=== PATIENT | female | born 1955 | race Caucasian/White ===

== ENCOUNTER 2017-01-17 16:25 | Emergency (ER) | payer OTHER ==
[2017-01-17] MEDS ORDERED: KETOROLAC TROMETHAMINE 30 MG/1ML VIAL IVP ONE (16:40)
[2017-01-17] MEDS ORDERED: ONDANSETRON HCL/PF 4 MG/ 2ML VIAL IVP ONE (16:40)
[2017-01-17] MEDS ORDERED: 0.9 % SODIUM CHLORIDE 1,000 ML IV ONE ×2 (16:40→16:41)
[2017-01-17] MEDS ORDERED: ONDANSETRON HCL/PF 4 MG/ 2ML VIAL ONE (16:41)
[2017-01-17] MEDS ORDERED: KETOROLAC TROMETHAMINE 30 MG/1ML VIAL ONE (16:41)
[2017-01-17 16:49] LABS: BASOPHILS % 0.9 (0.0-1.5); MEAN CORPUSCULAR HEMOGLOBIN 30.1 pg (28.0-34.0); MEAN CORPUSCULAR VOLUME 87.4 fl (80.0-100.0); MONOCYTES % 3.3 % (0.0-11.0); NEUTROPHILS # 5.5 # k/uL (1.4-7.7)
[2017-01-17] MEDS ORDERED: fentaNYL CITRATE/PF 100 MCG/ 2ML AMP IVP ONE ×2 (17:00→17:41)
[2017-01-17 17:07] LABS: eGFR (African) > 60; eGFR (Non-African) > 60
--- NOTE | 2017-01-17 17:43 | Diagnostic Imaging Report ---
[facility] [address] [facility] [address] [place], [place]. [address] Report Submission Date: January 17, 2017 5:39:44 PM CDT Patient Study Name: VIVI MUNGUIA Date: January 17, 2017 5:08:22 PM CDT Modality Type: CT\SR Gender: F Description: CT ABD & PELVIS W/O CO : 55 Institution: [facility] Physician: LUZ MARTINES (LABORER HEADING) - ER CT abdomen and pelvis without contrast Date of study: 17 Jan 2017 CLINICAL HISTORY: RIGHT-SIDED FLANK PAIN X 2 DAYS. (Hx) / RT FLANK PAIN (DICOM Hx) TECHNIQUE: 5 mm contiguous axial images of the abdomen and pelvis non contrast. FINDINGS: The lung bases are clear. Abdomen: The liver, pancreas and spleen are normal in appearance. The gallbladder is unremarkable. . The aorta is normal in caliber. The small and large bowel are nondistended. There is no evidence of free air or free fluid. There is a right hydronephrosis and right hydroureter. Aortoiliac vascular calcification is present. There is a 3 mm calculus at the left ureterovesical junction. Pelvis: The small and large bowel remain normal in appearance. The distal ureters and bladder are normal in appearance. There is no evidence of distal ureteral or intravesicular calculi. . There is no evidence of free air or free fluid. The sigmoid colon and rectum are normal. The remaining pelvic structures are within normal limits and the bones of the pelvis are intact. There is lumbar spondylosis. Normal appendix is present. The uterus has been removed. IMPRESSION: Right hydronephrosis and right hydroureter secondary to a 3 mm right ureterovesical junction calculus Aortoiliac vascular calcification Lumbar spondylosis Hysterectomy Electronically signed on January 17, 2017 5:39:44 PM CDT by: Zach TREVIÑO
[2017-01-17] MEDS ORDERED: cefTRIAXone SODIUM ADVANTAGE 1 GM in NORMAL SALINE ADD-VANTAGE 50 ML IV ONE (17:45)
--- NOTE | 2017-01-17 17:45 | ED Physician Documentation ---
Female Urogenital Problems - HISTORIAN Historian: patient - HPI Stated Complaint: right flank and abdomen pain Chief Complaint: Female Urogenital Problems Onset: hours (2 hours ago) Severity: severe (05/10) Further Comments: yes (61 year old) - Associated Symptoms Urinary Symptoms: discomfort w/ urination, urgency w/ urination, pain w/ urination - ROS CONST: no problems GI/: nausea, other (right flank pain). denies: vomiting, diarrhea CVS/RESP: none EYES/ENT: none NEURO/PSYCH: none - PAST HX Past History: other (Celiac disease; right inner ear problems ) Other History: none Allergies/Adverse Reactions: Allergies Allergy/AdvReac Type Severity Reaction Status Date / Time Iodinated Contrast Media - Allergy Severe Anaphylaxis Verified 01/17/17 17:06 IV Dye Home Medications: Ambulatory Orders Medication Instructions Recorded Ciprofloxacin HCl [Cipro] 500 mg PO BID #14 tablet 01/17/17 Ondansetron HCl Rapdis [Zofran Odt] 4 mg PO Q6 PRN #15 tab 01/17/17 Rosuvastatin Calcium [Crestor] 5 mg PO DAILY 01/17/17 Tramadol HCl [Ultram] 50 mg PO TID PRN 01/17/17 - SOCIAL HX Smoking History: non-smoker - FAMILY HX Family History: denies: none - VITAL SIGNS Vital Signs: Vital Signs Temp Pulse Resp BP Pulse Ox 97.9 F 86 18 172/81 97 01/17/17 16:30 01/17/17 16:30 01/17/17 16:30 01/17/17 16:30 01/17/17 16:30 - REVIEWED ASSESSMENTS Nursing Assessment Reviewed: Yes Vitals Reviewed: Yes Progress - Progress Progress: Patient medicated with toradol IV, no relief of pain, titrated fentanyl for pain. UA with no blood; patient continued to c/o 05/10 right flank pain, will progress with CT abd 1745 Patient states she feel much better; reviewed CT results and lab results. 1800 Discharge instructions reviewed, questions answered. ED Results Lab/Radiology - Lab Results Lab Results: Lab Results 01/17/17 01/17/17 16:40 16:40 WBC 9.00 K/ul K/ul (4.00-12.00) RBC 4.60 M/ul M/ul (3.90-5.20) Hgb 13.8 g/dL g/dL (12.0-16.0) Hct 40.2 % % (34.5-46.5) MCV 87.4 fl fl (80.0-100.0) MCH 30.1 pg pg (28.0-34.0) MCHC 34.4 g/dL g/dL (30.0-36.0) RDW 12.1 % % (11.3-14.3) Plt Count 231 K/mm3 K/mm3 (130-400) Neut % (Auto) 60.8 % % (39.0-79.0) Lymph % (Auto) 26.8 % % (16.0-50.0) [place] % (Auto) 3.3 % % (0.0-11.0) Eos % (Auto) 7.0 % H % (0.0-6.8) Baso % (Auto) 0.9 (0.0-1.5) Neut # 5.5 # k/uL # k/uL (1.4-7.7) Lymph # 2.4 # k/uL # k/uL (0.6-4.0) [place] # 0.3 # k/uL # k/uL (0.0-0.9) Eos # 0.6 # k/uL # k/uL (0.0-0.6) Baso # 0.1 # k/uL # k/uL (0.0-0.5) Reactive Lymphs % 1.2 % % (0.0-5.0) Reactive Lymphs # 0.1 # k/uL # k/uL (0.0-0.8) Sodium 143 mmol/L mmol/L (136-145) Potassium 3.6 mmol/L mmol/L (3.5-5.0) Chloride 108 mmol/L mmol/L (98-110) Carbon Dioxide 34 mmol/L H mmol/L (20-32) BUN 14 mg/dL mg/dL (10-26) Creatinine 0.9 mg/dL mg/dL (0.4-1.5) Est GFR ( Amer) > 60 (60 - ) Est GFR (Non-Af Amer) > 60 (60 - ) Glucose 120 mg/dL H mg/dL (70-99) Calcium 9.8 mg/dL mg/dL (8.5-10.5) Total Bilirubin 0.4 mg/dL mg/dL (0.2-1.2) AST 18 U/L U/L (0-41) ALT 16 U/L U/L (0-45) Alkaline Phosphatase 89 U/L U/L (46-116) Total Protein 7.8 g/dL g/dL (6.0-8.5) Albumin 4.7 g/dL g/dL (3.0-5.5) - Radiology Radiology Impressions: CT abdomen and pelvis without contrast Date of study: 17 Jan 2017 CLINICAL HISTORY: RIGHT-SIDED FLANK PAIN X 2 DAYS. (Hx) / RT FLANK PAIN (DICOM Hx) TECHNIQUE: 5 mm contiguous axial images of the abdomen and pelvis non contrast. FINDINGS: The lung bases are clear. Abdomen: The liver, pancreas and spleen are normal in appearance. The gallbladder is unremarkable. . The aorta is normal in caliber. The small and large bowel are nondistended. There is no evidence of free air or free fluid. There is a right hydronephrosis and right hydroureter. Aortoiliac vascular calcification is present. There is a 3 mm calculus at the left ureterovesical junction. Pelvis: The small and large bowel remain normal in appearance. The distal ureters and bladder are normal in appearance. There is no evidence of distal ureteral or intravesicular calculi. . There is no evidence of free air or free fluid. The sigmoid colon and rectum are normal. The remaining pelvic structures are within normal limits and the bones of the pelvis are intact. There is lumbar spondylosis. Normal appendix is present. The uterus has been removed. IMPRESSION: Right hydronephrosis and right hydroureter secondary to a 3 mm right ureterovesical junction calculus Aortoiliac vascular calcification Lumbar spondylosis Hysterectomy Electronically signed on January 17, 2017 5:39:44 PM CDT by: Zach Carbajal - Orders Orders: ED Orders Category Date Time Status Place Saline Lock/IV NOW Care 01/17/17 16:[address] ABD & PELVIS W/O CON Stat Exams 01/17/17 Taken CBC/PLATELET/DIFF Stat Lab 01/17/17 16:40 Completed CMP Stat Lab 01/17/17 16:40 Completed UA W/MICRO IF INDICATED Stat Lab 01/17/17 16:40 Ordered 0.9 % Sodium Chloride [Normal Saline] 1,000 ml Med 01/17/17 16:41 Discontinued IV .STK-MED Ketorolac Tromethamine [Toradol] Med 01/17/17 16:41 Discontinued 30 mg .ROUTE .STK-MED ONE Ketorolac Tromethamine [Toradol] Med 01/17/17 16:40 Discontinued 30 mg IVP NOW ONE Ondansetron HCl/Pf [Zofran 4 mg/2 ml] Med 01/17/17 16:41 Discontinued 4 mg .ROUTE .STK-MED ONE Ondansetron HCl/Pf [Zofran 4 mg/2 ml] Med 01/17/17 16:40 Discontinued 4 mg IVP NOW ONE fentaNYL CITRATE/PF [Duragesic] Med 01/17/17 17:00 Discontinued 50 mcg IVP NOW ONE fentaNYL CITRATE/PF [Duragesic] Med 01/17/17 17:41 Once 50 mcg IVP NOW ONE Female Urogenital Problems - EXAM General Appearance: moderate distress EENT: eye inspection normal, CHARLES Respiratory: no resp. distress, breath sounds nml CVS: reg rate & rhythm, heart sounds normal, equal pulses, no murmur, no gallop , PMI nml, no JVD, no friction rub, 24 Abdomen: soft, non-tender, no organomegaly, no distention, nml bowel sounds, tenderness (Right Lower quad) Back: CVA tenderness (right) Skin: color nml, no rash, warm,dry Extremities: non-tender, normal range of motion, no evidence of injury, no edema , J, MANAGER RESORT Neuro: oriented X3, CN's nml as tested, motor nml, sensation nml, mood/affect nml Discharge Clincal Impression: Renal calculus, right Prescriptions: Ciprofloxacin HCl [Cipro] 500 mg PO BID #14 tablet Ondansetron HCl Rapdis [Zofran Odt] 4 mg PO Q6 PRN #15 tab PRN Reason: Nausea / Vomiting Referrals: Rigoberto Sam DO [Primary Care Provider] - 2 Days Home Medications: Ambulatory Orders Ciprofloxacin HCl [Cipro] 500 mg PO BID #14 tablet 01/17/17 Ondansetron HCl Rapdis [Zofran Odt] 4 mg PO Q6 PRN #15 tab 01/17/17 Rosuvastatin Calcium [Crestor] 5 mg PO DAILY 01/17/17 Tramadol HCl [Ultram] 50 mg PO TID PRN 01/17/17 Condition: Stable Disposition: 01 HOME, SELF-CARE Decision to Admit: NO Decision Time: 18:03
[2017-01-17] MEDS ORDERED: 0.9 % SODIUM CHLORIDE 100 ML IV ONE ×2 (17:46→17:49)
[2017-01-17] MEDS ORDERED: cefTRIAXone SODIUM ADVANTAGE 1 GM VIAL.PORT IV ONE (17:47)
[2017-01-17] MEDS ORDERED: cefTRIAXone SODIUM 1 GM VIAL ONE (17:48)
[2017-01-17 18:25] VITALS: BP 168/82
[2017-01-18 06:21] LABS: OCCULT BLOOD,URINE NEGATIVE (NEGATIVE); PH URINE 7.5 (5.0 - 8.0); UROBILINOGEN URINE 0.2 Eu (0.2-1.0)
== END 2017-01-17 18:23 | disposition home or self-care (01) ==
LOC: ED 16:25 → EDSTATUS 16:26 → ED 18:23
DX: N20.0 Calculus of kidney (principal)
CPT/HCPCS: 74176; 80053; 81002; 85025; 87086; J0696; J1885; J2405; J3010; J7030; S1016

== ENCOUNTER 2017-01-19 11:37 | Emergency (ER) | payer OTHER ==
[2017-01-19] MEDS ORDERED: 0.9 % SODIUM CHLORIDE 1,000 ML IV ONE (12:13)
[2017-01-19] MEDS ORDERED: ONDANSETRON HCL/PF 4 MG/ 2ML VIAL IVP ONE (12:13)
[2017-01-19] MEDS ORDERED: KETOROLAC TROMETHAMINE 30 MG/1ML VIAL IVP ONE (12:13)
[2017-01-19 12:34] LABS: BASOPHILS % 0.8 (0.0-1.5); MEAN CORPUSCULAR VOLUME 89.3 fl (80.0-100.0); MONOCYTES % 3.6 % (0.0-11.0); NEUTROPHILS # 4.5 # k/uL (1.4-7.7)
[2017-01-19 12:43] LABS: eGFR (African) > 60; eGFR (Non-African) > 60
[2017-01-19 13:31] LABS: APPEARANCE,URINE Clear (CLEAR); COLOR,URINE Amber (YELLOW); OCCULT BLOOD,URINE Negative (NEGATIVE)
[2017-01-19] MEDS ORDERED: TAMSULOSIN HCL 0.4 MG CAP.ER.24H PO ONE (14:06)
[2017-01-19 14:33] VITALS: BP 155/70
--- NOTE | 2017-01-19 15:27 | Diagnostic Imaging Report ---
LUZ MARTINES (GUZMAN) - ER [facility] [address] [facility] [address] [place], [place]. [address] Report Submission Date: January 19, 2017 2:02:15 PM CDT Patient Study Name: VIVI MUNGUIA Date: January 19, 2017 1:32:18 PM CDT Modality Type: CT\SR Gender: F Description: CT ABD & PELVIS W/O CO : 55 Institution: [facility] Physician: LUZ MARTINES) - ER CT of the abdomen and pelvis without contrast Clinical history: Right lower quadrant abdominal pain. Technique: CT abdomen and pelvis is performed without oral or intravenous administration of contrast. Sagittal and coronal reconstructions are performed by the technologist. Findings: The visualized lung bases are clear. Liver and spleen demonstrate normal attenuation without focal defect. There is no pancreatic or adrenal abnormality. Kidneys are normal size, shape and position. There is right hydronephrosis and hydroureter with a 2 mm stone at right ureterovesical junction. There is no retroperitoneal mass or significant adenopathy. Vascular calcification is present in the abdominal aorta without evidence of aneurysm. There are degenerative changes in the lumbar vertebrae with vacuum phenomenon at L5-S1. The appendix is visualized and is within normal limits. The uterus is surgically absent. Impression: 1. Right hydronephrosis and hydroureter with 2 mm stone at the right ureterovesical junction. 2. Negative appendix. 3. Lumbar spondylosis. 4. Postoperative changes. Electronically signed on January 19, 2017 2:02:15 PM CDT by: Sage TREVIÑO
--- NOTE | 2017-01-19 18:28 | ED Physician Documentation ---
Female Urogenital Problems - HISTORIAN Historian: patient - HPI Stated Complaint: right flank pain Chief Complaint: Female Urogenital Problems Onset: hours Severity: severe Further Comments: yes (61 year old female patient presents with complaint of RLQ pain. Patient was seen in ER on Thursday, diagnosed with renal calculi Rt UVJ. Patient states she was pain free yesterday. States today her pain started again around 0800, rates pain 8-9/10.) - Associated Symptoms Urinary Symptoms: frequent urination, discomfort w/ urination, burning w/ urination, urgency w/ urination, pain w/ urination Discharge: denies: vaginal discharge, vaginal fluid leakage, odorous discharge - ROS CONST: recent illness (ER on 01/17/17) GI/: nausea. denies: vomiting, decreased appetite, diarrhea, black stools CVS/RESP: none EYES/ENT: none NEURO/PSYCH: none MS/SKIN/LYMPH: none - PAST HX Past History: other (HLD) Allergies/Adverse Reactions: Allergies Allergy/AdvReac Type Severity Reaction Status Date / Time Iodinated Contrast Media - Allergy Severe Anaphylaxis Verified 01/17/17 17:06 IV Dye Home Medications: Ambulatory Orders Medication Instructions Recorded Ciprofloxacin HCl [Cipro] 500 mg PO BID #14 tablet 01/17/17 Ondansetron HCl Rapdis [Zofran Odt] 4 mg PO Q6 PRN #15 tab 01/17/17 Rosuvastatin Calcium [Crestor] 5 mg PO DAILY 01/17/17 Tramadol HCl [Ultram] 50 mg PO TID PRN 01/17/17 HYDROcodone /APAP 5/325 [Reydon 1 tab PO QID PRN 01/19/17 5/325] Ondansetron HCl Rapdis [Zofran ODT] 4 mg PO QID PRN 01/19/17 - SOCIAL HX Smoking History: non-smoker - FAMILY HX Family History: denies: none - VITAL SIGNS Vital Signs: Vital Signs Temp Pulse Resp BP Pulse Ox 98.1 F 72 20 155/70 98 01/19/17 14:31 01/19/17 14:31 01/19/17 14:31 01/19/17 14:31 01/19/17 14:31 - REVIEWED ASSESSMENTS Nursing Assessment Reviewed: Yes Vitals Reviewed: Yes Progress - Progress Progress: Discussed treatment options. Patient very concerned something else is wrong. Will re-scan. Patient states pain has resolved after toradol Reviewed CT scan results, questions answered. Started on flomax po. Reviewed discharge instructions, verbalized understanding. ED Results Lab/Radiology - Lab Results Lab Results: Lab Results 01/19/17 01/19/17 01/19/17 13:21 12:12 12:12 WBC 6.70 K/ul K/ul (4.00-12.00) RBC 4.66 M/ul M/ul (3.90-5.20) Hgb 14.0 g/dL g/dL (12.0-16.0) Hct 41.6 % % (34.5-46.5) MCV 89.3 fl fl (80.0-100.0) MCH 30.0 pg pg (28.0-34.0) MCHC 33.5 g/dL g/dL (30.0-36.0) RDW 12.1 % % (11.3-14.3) Plt Count 234 K/mm3 K/mm3 (130-400) Neut % (Auto) 67.4 % % (39.0-79.0) Lymph % (Auto) 20.1 % % (16.0-50.0) [place] % (Auto) 3.6 % % (0.0-11.0) Eos % (Auto) 7.0 % H % (0.0-6.8) Baso % (Auto) 0.8 (0.0-1.5) Neut # 4.5 # k/uL # k/uL (1.4-7.7) Lymph # 1.4 # k/uL # k/uL (0.6-4.0) [place] # 0.2 # k/uL # k/uL (0.0-0.9) Eos # 0.5 # k/uL # k/uL (0.0-0.6) Baso # 0.0 # k/uL # k/uL (0.0-0.5) Reactive Lymphs % 1.2 % % (0.0-5.0) Reactive Lymphs # 0.1 # k/uL # k/uL (0.0-0.8) Sodium 138 mmol/L mmol/L (136-145) Potassium 3.8 mmol/L mmol/L (3.5-5.0) Chloride 103 mmol/L mmol/L (98-110) Carbon Dioxide 32 mmol/L mmol/L (20-32) BUN 12 mg/dL mg/dL (10-26) Creatinine 0.8 mg/dL mg/dL (0.4-1.5) Est GFR ( Amer) > 60 (60 - ) Est GFR (Non-Af Amer) > 60 (60 - ) Glucose 109 mg/dL H mg/dL (70-99) Calcium 10.0 mg/dL mg/dL (8.5-10.5) Total Bilirubin 0.5 mg/dL mg/dL (0.2-1.2) AST 22 U/L U/L (0-41) ALT 19 U/L U/L (0-45) Alkaline Phosphatase 98 U/L U/L (46-116) Total Protein 8.0 g/dL g/dL (6.0-8.5) Albumin 4.9 g/dL g/dL (3.0-5.5) Urine Color [place] (YELLOW) Urine Appearance Clear (CLEAR) Urine pH 5.0 (5.0 - 8.0) Ur Specific [place] 1.015 (1.010-1.030) Urine Protein 2+ mg/dL H mg/dL (NEGATIVE) Urine Ketones Trace mg/dL mg/dL (NEGATIVE) Urine Occult Blood Negative (NEGATIVE) Urine Nitrite Positive (NEGATIVE) Urine Bilirubin 1+ H (NEGATIVE) Urine Urobilinogen 4.0 Eu H Eu (0.2-1.0) Ur Leukocyte Esterase 3+ H (NEGATIVE) Urine RBC 0-2 (0-2 HPF) Urine WBC 2-5 (0-5 HPF) Ur Squamous Epith Cells Few (NEG-FEW) Urine Bacteria Few H (NEGATIVE) Urine Glucose 1+ mg/dL H mg/dL (NEGATIVE) - Radiology Radiology Impressions: CT of the abdomen and pelvis without contrast Clinical history: Right lower quadrant abdominal pain. Technique: CT abdomen and pelvis is performed without oral or intravenous administration of contrast. Sagittal and coronal reconstructions are performed by the technologist. Findings: The visualized lung bases are clear. Liver and spleen demonstrate normal attenuation without focal defect. There is no pancreatic or adrenal abnormality. Kidneys are normal size, shape and position. There is right hydronephrosis and hydroureter with a 2 mm stone at right ureterovesical junction. There is no retroperitoneal mass or significant adenopathy. Vascular calcification is present in the abdominal aorta without evidence of aneurysm. There are degenerative changes in the lumbar vertebrae with vacuum phenomenon at L5-S1. The appendix is visualized and is within normal limits. The uterus is surgically absent. Impression: 1. Right hydronephrosis and hydroureter with 2 mm stone at the right ureterovesical junction. 2. Negative appendix. 3. Lumbar spondylosis. 4. Postoperative changes. - Orders Orders: ED Orders Category Date Time Status Place Saline Lock/IV NOW Care 01/19/17 12:[address] ABD & PELVIS W/O CON Stat Exams 01/19/17 Completed CBC/PLATELET/DIFF Stat Lab 01/19/17 12:12 Completed CMP Stat Lab 01/19/17 12:12 Completed UA W/MICRO IF INDICATED Stat Lab 01/19/17 13:21 Completed URINE CULTURE Routine Lab 01/19/17 13:45 Received 0.9 % Sodium Chloride [Normal Saline] 1,000 ml Med 01/19/17 12:13 Discontinued IV NOW Ketorolac Tromethamine [Toradol] Med 01/19/17 12:13 Discontinued 30 mg IVP NOW ONE Ondansetron HCl/Pf [Zofran 4 mg/2 ml] Med 01/19/17 12:13 Discontinued 4 mg IVP NOW ONE Tamsulosin HCl [Flomax] Med 01/19/17 14:06 Discontinued 0.4 mg PO NOW ONE Female Urogenital Problems - EXAM General Appearance: moderate distress EENT: eye inspection normal, ENT inspection normal, pharynx normal, no signs of dehydration, CHARLES, no nystagmus, TM's nml Respiratory: no resp. distress, breath sounds nml CVS: reg rate & rhythm, heart sounds normal, equal pulses, no murmur, no gallop , PMI nml, no JVD, no friction rub, 24 Abdomen: soft, non-tender, no organomegaly, no distention, nml bowel sounds, other (RLQ pain ) Back: non-tender, painless ROM Skin: color nml, no rash, warm,dry Extremities: non-tender, normal range of motion, no evidence of injury, no edema , J, FISHER TRAP Neuro: oriented X3, CN's nml as tested, motor nml, sensation nml, mood/affect nml Discharge Clincal Impression: Renal calculus, right Referrals: Rigoberto Sam, DO [Primary Care Provider] - 2 Days Additional Instructions: Continue to strain all urine No caffeine Drink at least 64 oz of water daily. Follow up with your primary care in 2 days. Finish your antibiotics You may continue to use the Hydrocodone as needed for pain. You may take ibuprofen every 6 hours as needed for pain Home Medications: Ambulatory Orders Ciprofloxacin HCl [Cipro] 500 mg PO BID #14 tablet 01/17/17 Ondansetron HCl Rapdis [Zofran Odt] 4 mg PO Q6 PRN #15 tab 01/17/17 Rosuvastatin Calcium [Crestor] 5 mg PO DAILY 01/17/17 Tramadol HCl [Ultram] 50 mg PO TID PRN 01/17/17 HYDROcodone /APAP 5/325 [Reydon 5/325] 1 tab PO QID PRN 01/19/17 Ondansetron HCl Rapdis [Zofran ODT] 4 mg PO QID PRN 01/19/17 Condition: Stable Disposition: 01 HOME, SELF-CARE Decision to Admit: NO Decision Time: 14:20
== END 2017-01-19 14:31 | disposition home or self-care (01) ==
LOC: ED 11:37
DX: N20.0 Calculus of kidney (principal)
CPT/HCPCS: 74176; 80053; 81002; 85025; 87086; J1885; J2405; J7030; 96361; 96374; 96375; 99283; S1016

== ENCOUNTER 2018-04-22 15:55 | Outpatient (CLI) | payer OTHER ==
[2018-04-22 17:07] LABS: BASOPHILS % 1.2 (0.0-1.5); EOSINOPHILS % 9.1 % (0.0-6.8); MEAN CORPUSCULAR HEMOGLOBIN 29.4 pg (28.0-34.0); MEAN CORPUSCULAR VOLUME 88.9 fl (80.0-100.0); MONOCYTES % 5.5 % (0.0-11.0); NEUTROPHILS # 2.4 # k/uL (1.4-7.7)
[2018-04-22 17:19] LABS: eGFR (African) > 60; eGFR (Non-African) > 60
== END 2018-04-22 16:00 | disposition home or self-care (01) ==
LOC: LAB 15:55
PROVIDERS: ATTEND Internal Medicine
DX: R10.11 Right upper quadrant pain (principal)
CPT/HCPCS: 36415; 80053; 82150; 85025